=== PATIENT | female | born 1960 | race Caucasian/White ===

== ENCOUNTER 2017-03-27 09:21 | Emergency (ER) | payer OTHER ==
[~2017-03-27] VITALS: Ht 170.2 cm; Wt 62.4 kg
[~2017-03-27 09:21] MED LIST: BUSPIRONE HCL10 MG PO; CLEOCIN300 MG PO; CLINDAMYCIN HC300 MG PO; COZAAR50 MG PO; ESTRADIOL1 MG PO; VERELAN 240 MG240 MG PO; XANAX0.25 MG PO
[2017-03-27 09:27] VITALS: BP 152/100
== END 2017-03-27 11:09 | disposition home or self-care (01) ==
LOC: EME 09:21
DX: S20.212A Contusion of left front wall of thorax, initial encounter (principal); W22.8XXA Striking against or struck by other objects, initial encounter; Y93.E2 Activity, laundry; F41.9 Anxiety disorder, unspecified; I10 Essential (primary) hypertension; Z88.2 Allergy status to sulfonamides; Z88.1 Allergy status to other antibiotic agents
CPT/HCPCS: 71100; 99281; 99284

== ENCOUNTER 2017-08-30 19:29 | Emergency (ER) | payer OTHER ==
[~2017-08-30] VITALS: Ht 170.2 cm; Wt 61.0 kg
[2017-08-30 22:46] VITALS: BP 0/0
== END 2017-08-30 22:48 | disposition home or self-care (01) ==
LOC: EME 19:29
DX: M79.662 Pain in left lower leg (principal); I10 Essential (primary) hypertension; Z90.710 Acquired absence of both cervix and uterus; Z79.890 Hormone replacement therapy; Z87.891 Personal history of nicotine dependence
CPT/HCPCS: 93971; 99281; 99284